=== PATIENT | female | born 1955 | race Caucasian/White ===

== ENCOUNTER → 2020-07-10 14:38 | Outpatient (BNVA) | payer MEDICARE, SELFPAY | PROVIDERS: Family Provider Nurse Practitioner; Visit Provider Internal Medicine | DX: M25.50 Pain in unspecified joint (principal); Z79.899 Other long term (current) drug therapy; Z11.59 Encounter for screening for other viral diseases; Z11.1 Encounter for screening for respiratory tuberculosis | CPT/HCPCS: 36415; 80053; 85025; 85651; 86038; 86140; 86431; 86480; 86704; 86706; 86803; 86812; 87340; 99203; 99213 ==

== ENCOUNTER → 2022-03-11 09:47 | Outpatient (BNVA) | payer MEDICARE, SELFPAY | PROVIDERS: Family Provider Nurse Practitioner; PCP Family Medicine; Visit Provider Surgery | DX: Z98.890 Other specified postprocedural states (principal) | CPT/HCPCS: 99203 ==

== ENCOUNTER 2022-05-23 09:12 | Outpatient (CLI) | payer MEDICARE, SELFPAY ==
--- NOTE | 2022-05-23 09:21 | FL_ITS ---
WS: [id number] Air contrast barium enema, 05/23/2022 Clinical Data: HX OF RECTAL SURGERY/POSTPROCEDURAL STATES Comparison: None. Fluoroscopy time: 1min [id number] # of spot films: 5 Findings: The preliminary film demonstrated splenic artery calcifications and splenic granulomas. There are cli ps in the right upper quadrant from a cholecystectomy. The air and barium mixture were introduced in a retrograde fashion to fill the entire colon. The cecum was well outlined as well as the appendix. T he ileocecal valve was identified. The haustral pattern was normal. There was retained fecal material throughout the colon. No polyps, masses, erosion or obstruction could be seen. The post evacuation f ilms showed no abnormalities. FL/FL barium enema w air* [id number] Impression: 1. Negative air contrast barium enema. 2. Minimal retained stool which degrades the examination slightly.
== END 2022-05-23 09:13 | disposition home or self-care (01) ==
PROVIDERS: PCP Family Medicine; Visit Provider Surgery
DX: Z98.890 Other specified postprocedural states (principal)
CPT/HCPCS: 74280

== ENCOUNTER → 2022-06-05 09:32 | Outpatient (BNVA) | payer MEDICARE, SELFPAY | PROVIDERS: PCP Family Medicine; Visit Provider Surgery | DX: Z98.890 Other specified postprocedural states (principal) | CPT/HCPCS: 99213 ==

== ENCOUNTER → 2023-09-15 11:22 | Outpatient (BNVA) | payer OTHER, SELFPAY | PROVIDERS: PCP Family Medicine; Visit Provider Nurse Practitioner | DX: E11.9 Type 2 diabetes mellitus without complications (principal) | CPT/HCPCS: 71100; 72100; 73562; 80053; 80061; 83036; 84443; 85025 ==

== ENCOUNTER 2024-06-07 10:31 | Outpatient (CLI) | payer MEDICARE, SELFPAY ==
--- NOTE | 2024-06-07 10:36 | XRR_ITS ---
PROCEDURE INFORMATION: Exam: XR Right Shoulder Exam date and time: 06/07/2024 10:40 AM Age: 68 years old Clinical indication: Pain and injury or trauma; Blunt trauma (contusions or hematomas); Injury details: Fall 3 months ago with pain in the right shoulder that radiates up; Additional info: M25.511 - pain in right shoulder TECHNIQUE: Imaging protocol: Radiologic exam of the right shoulder. Views: 2 or more views. COMPARISON: [place] [id number] 09/02/2018 12:28 PM FINDINGS: Bones/joints: Moderate osteopenia. Mild acromioclavicular and glenohumeral narrowing and spurring. No fracture or dislocation. No acute osseous or joint abnormality. Lungs: Calcified granuloma in the right lung.. Soft tissues: Normal. XR/XR shoulder RT min 2V* [id number] IMPRESSION: No acute findings.
== END 2024-06-07 10:32 | disposition home or self-care (01) ==
PROVIDERS: PCP Nurse Practitioner; Visit Provider Nurse Practitioner
DX: M85.811 Other specified disorders of bone density and structure, right shoulder (principal)
CPT/HCPCS: 73030